=== PATIENT | female | born 1960 | race Caucasian/White ===

== ENCOUNTER → 2020-06-24 16:00 | Outpatient (CLI) | payer OTHER, SELFPAY ==
--- NOTE | ~2020-06-24 | MM_ITS ---
EXAMINATION: MM screening [facility] BI w wagner HISTORY: Screening mammogram TECHNIQUE: Craniocaudal and mediolateral oblique 3-D tomosynthesis images were obtained and synthetic 2-D images were generated. CAD analysis was submitted and interpreted. COMPARISON: 04/19/2019, 01/29/2018, 07/04/2016 bilateral digital screening mammogram examinations BREAST PARENCHYMAL COMPOSITION: There are scattered areas of fibroglandular density. FINDINGS: There is a stable circumscribed 4 mm opacity in the lower inner quadrant of the right breas t, likely a benign intramammary lymph node, stable since 07/04/2016. There is no evidence of suspicious mass, calcification, or architectural distortion to suggest malignancy in either breast. There has b een no suspicious interval change. IMPRESSION: 1. No mammographic evidence of malignancy. 2. Recommend routine screening mammography in one year. BI-RADS Category 2: Benign finding(s). Reviewed, dictated and finalized at location A. MACY RESIDENT
== END ==
PROVIDERS: PCP Family Medicine; Visit Provider Family Medicine
DX: Z12.31 Encounter for screening mammogram for malignant neoplasm of breast (principal)
CPT/HCPCS: 77063; 77067

== ENCOUNTER → 2021-07-09 13:05 | Outpatient (CLI) | payer OTHER, SELFPAY ==
--- NOTE | ~2021-07-09 | XR_ITS ---
EXAMINATION: XR chest 2V DATE: 07/09/2021 13:23 INDICATION: Cough, unspecified. TECHNIQUE: Frontal and lateral views of the chest were obtained. COMPARISON: Chest 2 views 09/17/2007 FINDINGS: There are airspace opacities in lingula. No pleural effusion or pneumothorax. The heart siz e is normal. IMPRESSION: 1. Airspace opacities in lingula, consistent with atelectasis versus pneumonia. Reviewed, dictated and finalized at location A. NICAL ADMINISTRATIVE ASSISTANT
== END ==
PROVIDERS: PCP Family Medicine; Visit Provider Family Medicine
DX: R05.9 Cough, unspecified (principal); R91.8 Other nonspecific abnormal finding of lung field
CPT/HCPCS: 71046

== ENCOUNTER → 2021-08-27 12:10 | Outpatient (CLI) | payer OTHER, SELFPAY ==
--- NOTE | ~2021-08-27 | MM_ITS ---
EXAMINATION: MM screening [facility] BI w wagner HISTORY: Screening TECHNIQUE: Craniocaudal and mediolateral oblique 3-D tomosynthesis images were obtained and synthetic 2-D images were generated. CAD analysis was submitted and interpreted. COMPARISON: Comparison to multiple prior studies sequentially, with oldest reviewed study dated 03/01. BREAST PARENCHYMAL COMPOSITION: There are scattered areas of fibroglandular density. FINDINGS: There is no evidence of suspicious mass, calcification, or architectural distortion to sugg est malignancy in either breast. There has been no suspicious interval change. IMPRESSION: 1. No mammographic evidence of malignancy. 2. Recommend routine screening mammography in one year. BI-RADS Category 1: Negative Reviewed, dictated and finalized at location A.
== END ==
PROVIDERS: PCP Family Medicine; Visit Provider Family Medicine
DX: Z12.31 Encounter for screening mammogram for malignant neoplasm of breast (principal)
CPT/HCPCS: 77063; 77067

== ENCOUNTER 2022-07-21 01:05 | Day surgery (SDC) | payer OTHER, SELFPAY ==
[2022-07-07 14:10] VITALS: BMI 29.3
[2022-07-21 10:30] VITALS: BP 129/94; PULSE 75; RESP 16; TEMP 36.3; O2SAT 97; BMI 28.5
[2022-07-21] MEDS: LACTATED RINGERS 1,000 ML 150 ML IV CONT (10:47)
--- NOTE | 2022-07-21 10:50 | WPDANESEPPF ---
Anes - Initial Pre Proc Eval Procedure: Operation Date: 07/21/22 11:15 Proposed Procedures p Screening Colonoscopy - Ever Cuello MD Date/Time: 07/21/22 10:50 Surgeon: Ever Cuello MD Pre Op Diagnosis: neoplasm screening Patient Data Age: 61 Gender: F Height: 1.68 m Weight: 80.3 kg Last Vital Signs Temp 36.3 C L 07/21/22 10:30 Pulse 75 07/21/22 10:30 Resp 16 07/21/22 10:30 BP 129/94 H 07/21/22 10:30 Pulse Ox 97 07/21/22 10:30 O2 Del Method Room Air 07/21/22 10:30 Allergies Allergy/AdvReac Type Severity Reaction Status Date / Time No Known Allergies Allergy Mild NONE Verified 07/21/22 10:37 Home Medications Medication Instructions Recorded Confirmed Type albuterol sulfate 90 mcg/actuation 2 inh inhalation Q4H PRN shortness 07/09/21 07/21/22 Rx aerosol inhaler of breath or wheezing #8.5 grams escitalopram oxalate 10 mg tablet See Rx Instructions .Route 05/23/22 07/21/22 Rx .COMPLEX #90 tabs losartan 50 mg tablet See Rx Instructions .Route 05/23/22 07/21/22 Rx .COMPLEX #90 tabs atorvastatin 10 mg tablet See Rx Instructions .Route 05/24/22 07/21/22 Rx .COMPLEX #90 tabs famotidine 20 mg tablet 20 mg PO DAILY PRN Heartburn 07/07/22 07/21/22 History Patient hx anesthesia problems: none Family hx anesthesia problems: none Results Review: All pre-operative results and documents have been reviewed as part of the pre-operative evaluation. [facility] Past Medical History Medical History (Updated 07/21/22 @ 10:50 by Jan Nieves DO) Essential (primary) hypertension Prediabetes Pure hypercholesterolemia, unspecified Family History Family History Sibling Hypertension Diabetes mellitus Family history of elevated blood lipids Family history of cardiovascular disease Acute myocardial infarction, Onset Age: 55 Family history of coronary artery disease Father Hypertension Grandparent Family history of cardiovascular disease Mother Acute myocardial infarction, Onset Age: 88 Social History Social History (Updated 06/09/22 @ 10:11 by Siomara Mccray [facility]) Smoking status: Never smoker Alcohol intake: current Drinks per week: 4 Substance use: current Substance use type: marijuana Other substance usage details: occasional MJ use Lack of Transportation: No Lack of Food: Never True Current Housing: I Have Housing Concerned About Future Housing: No Difficulty Paying Gas/Electric Bills: No Difficulty Paying for Meds: No Currently Unemployed: No Education: Bachelor's Degree Difficulty w/ Childcare or Family Care: No Living arrangements: with family Spiritual care concerns: No Anes - Eval Final PreProcedure Day of Procedure 07/21/22 10:50 Patient weight: overweight Heart: regular rate and rhythm Lungs: clear to auscultation Airway: Mallampati scale class II Neurological: alert and oriented Last oral intake: >/= 8 hours ASA classification: II Emergent: no Anesthetic plan: proceed Anesthesia type and monitoring: general GIVS and standard monitoring Results Review: All pre-operative results and documents have been reviewed as part of the pre-operative evaluation. Informed Consent: The patient's anesthetic plan and its attendant risks and benefits were discussed with the patient/family/POA. Questions were solicited and answers provided to the satisfaction of the patient/family/POA.
--- NOTE | 2022-07-21 11:07 | PM.HPGS ---
History of Present Illness History of Present Illness Consent: Risks, benefits, and alternatives have been discussed and questions answered. Patient agrees to proceed with procedure. Chief complaint: neoplasm screening Narrative: Dariela De Oliveira is a 61 year old female Presents for screening colonoscopy. Patient's current weight appetite and bowel movements are normal. Patient denies abdominal pain. Patient has had no bleeding. Family history noncontributory. Patient had did have previous colonoscopy 10 years ago that was unremarkable. she presents today for neoplasia screening. Review of Systems Review of Systems: Review of systems noncontributory. [facility] Past Medical History Medical History (Updated 07/21/22 @ 10:50 by Jan Nieves DO) Essential (primary) hypertension Prediabetes Pure hypercholesterolemia, unspecified Family History Family History Sibling Hypertension Diabetes mellitus Family history of elevated blood lipids Family history of cardiovascular disease Acute myocardial infarction, Onset Age: 55 Family history of coronary artery disease Father Hypertension Grandparent Family history of cardiovascular disease Mother Acute myocardial infarction, Onset Age: 88 Social History Social History (Updated 06/09/22 @ 10:11 by Siomara Mccray [facility]) Smoking status: Never smoker Alcohol intake: current Drinks per week: 4 Substance use: current Substance use type: marijuana Other substance usage details: occasional MJ use Lack of Transportation: No Lack of Food: Never True Current Housing: I Have Housing Concerned About Future Housing: No Difficulty Paying Gas/Electric Bills: No Difficulty Paying for Meds: No Currently Unemployed: No Education: Bachelor's Degree Difficulty w/ Childcare or Family Care: No Living arrangements: with family Spiritual care concerns: No Meds Home Medications and Allergies Home Medications Medication Instructions Recorded Confirmed Type albuterol sulfate 90 mcg/actuation 2 inh inhalation Q4H PRN shortness 07/09/21 07/21/22 Rx aerosol inhaler of breath or wheezing #8.5 grams escitalopram oxalate 10 mg tablet See Rx Instructions .Route 05/23/22 07/21/22 Rx .COMPLEX #90 tabs losartan 50 mg tablet See Rx Instructions .Route 05/23/22 07/21/22 Rx .COMPLEX #90 tabs atorvastatin 10 mg tablet See Rx Instructions .Route 05/24/22 07/21/22 Rx .COMPLEX #90 tabs famotidine 20 mg tablet 20 mg PO DAILY PRN Heartburn 07/07/22 07/21/22 History Allergies Allergy/AdvReac Type Severity Reaction Status Date / Time No Known Allergies Allergy Mild NONE Verified 07/21/22 10:37 Vital Signs Vital Signs - 24 hr 07/21/22 10:30 Temperature 97.4 F L Pulse Rate 75 Respiratory Rate 16 Blood Pressure 129/94 H Pulse Oximetry 97 Oxygen Delivery Room Air Exam Narrative: Physical exam reveals patient to be alert. Vital signs stable. HEENT exam is unremarkable. Patient is anicteric. Lungs are clear to auscultation and percussion. Heart is without murmur or extra sounds. Abdomen bowel sounds are present soft nontender with no organomegaly. Digital external rectal exam is normal. Assessment and Plan Assessment and plan (1) Screening for colon cancer: Code(s): Z12.11 - Encounter for screening for malignant neoplasm of colon Status: Acute Assessment and Plan: Patient presents today for neoplasia screening colonoscopy. Patient appears to be at average risk for colon polyps. Further recommendations may be given after endoscopy.
[2022-07-21 11:59] VITALS: BP 116/64; PULSE 62; RESP 25; O2SAT 98
[2022-07-21 12:09] VITALS: BP 138/69; PULSE 64; RESP 25; O2SAT 100
[2022-07-21 12:19] VITALS: BP 145/73; PULSE 60; RESP 12; O2SAT 100
== END 2022-07-21 12:34 | disposition home or self-care (01) ==
PROVIDERS: PCP Family Medicine; Visit Provider Internal Medicine Gastroenterology
PROC: 0DJD8ZZ Inspection of Lower Intestinal Tract, Via Natural or Artificial Opening Endoscopic (ICD-10-PCS; CPT 45378; principal; 2022-07-21 11:15)
DX: Z12.11 Encounter for screening for malignant neoplasm of colon (principal); K64.8 Other hemorrhoids; I10 Essential (primary) hypertension; E78.00 Pure hypercholesterolemia, unspecified; R73.03 Prediabetes; Z79.51 Long term (current) use of inhaled steroids; F12.90 Cannabis use, unspecified, uncomplicated
CPT/HCPCS: 45378; J2704; J7120

== ENCOUNTER → 2022-11-04 12:49 | Outpatient (CLI) | payer OTHER, SELFPAY ==
--- NOTE | ~2022-11-04 | MM_ITS ---
EXAMINATION: MM screening [facility] BI w wagner HISTORY: Screening mammogram TECHNIQUE: Craniocaudal and mediolateral oblique 3-D tomosynthesis images were obtained and synthetic 2-D images were generated. CAD analysis was submitted and interpreted. COMPARISON: 08/27/2021, 06/24/2020, 04/19/2019 BREAST PARENCHYMAL COMPOSITION: There are scattered areas of fibroglandular density. FINDINGS: No suspicious mass, calcification, or architectural distortion are identified in either luolou ast to suggest malignancy. There has been no suspicious interval change. IMPRESSION: 1. No mammographic evidence of malignancy. 2. Recommend routine screening mammography in one year. BI-RADS Category 1: Negative Reviewed, dictated and finalized at location A.
== END ==
PROVIDERS: PCP Family Medicine; Visit Provider Family Medicine
DX: Z12.31 Encounter for screening mammogram for malignant neoplasm of breast (principal)
CPT/HCPCS: 77063; 77067

== ENCOUNTER 2024-07-23 12:11 | Outpatient (CLI) | payer OTHER, SELFPAY ==
--- NOTE | ~2024-07-23 | MM_ITS ---
EXAMINATION: MM screening [facility] BI w wagner HISTORY: Screening TECHNIQUE: Craniocaudal and mediolateral oblique 3-D tomosynthesis images were obtained and synthetic 2-D images were generated. CAD analysis was submitted and interpreted. COMPARISON: 11/04/2022 and dating back to its 04/19/2019 BREAST PARENCHYMAL COMPOSITION: There are scattered areas of fibroglandular density. FINDINGS: Likely intramammary lymph node within the lower inner right breast, stable dating back to 2 019. Stable parenchymal pattern without suspicious microcalcifications or architectural distortion. IMPRESSION: 1. No mammographic evidence of malignancy. 2. Recommend routine screening mammography in one year. BI-RADS Category 2: Benign finding(s). Reviewed, dictated and finalized at location A.
== END 2024-07-23 12:12 | disposition home or self-care (01) ==
LOC: MICIMG 12:16
PROVIDERS: PCP Nurse Practitioner; Visit Provider Nurse Practitioner
DX: Z12.31 Encounter for screening mammogram for malignant neoplasm of breast (principal)
CPT/HCPCS: 77063; 77067